=== PATIENT | female | born 1980 | race Caucasian/White ===

== ENCOUNTER → 2016-09-28 | Outpatient (CLI) | payer BC ==
[~2016-09-28] MED LIST: ACET325T38; CITA20TA12 PO; DIPH25CA79 PO; HYDR-3881 PO; IBUP100T6; NF-FAMCIT PO; PREN1TAB39 PO; TR1C15; [UNRECOGNIZED DRUG - CODE] PO
[2016-09-28 12:40] LABS: MEAN CORPUSCULAR HEMOGLOBIN 29.9 PG (26.0-34.0); MEAN CORPUSCULAR HGB CONC 33.3 g/dL (31.0-37.0); MEAN PLATELET VOLUME 9.3 FL (6.0-9.5); WHITE BLOOD COUNT 6.02 10^3uL (4.0-11.0)
[2016-09-28 13:26] LABS: ALBUMIN 4.7 g/dL (3.4-5.0); ANION GAP 17.5 MEQ/L (3-15); CALCULATED IONIZED CALCIUM 4.4 mg/dL (3.8-4.6); TOTAL PROTEIN 7.2 g/dL (6.4-8.5)
== END ==
LOC: LAB 12:23
PROVIDERS: ATTEND Physician Assistant
DX: Z00.00 Encounter for general adult medical examination without abnormal findings (principal); R29.898 Other symptoms and signs involving the musculoskeletal system
CPT/HCPCS: 36415; 80053; 80061; 84443; 85027; 85652; 86431